=== PATIENT | male | born 1955 | race Caucasian/White ===

== ENCOUNTER 2017-01-22 21:44 | Emergency (ER) | payer OTHER ==
[~2017-01-22] VITALS: Ht 177.8 cm; Wt 79.4 kg
--- NOTE | 2017-01-22 23:12 | NUR ---
PT AMBULATORY TO ER BED 5 PT C/O LEFT HIP PAIN X 3 DAYS PT DENIES INJURY OR TRAUMA, PT AOX3 RR EVEN AND UNLABORED. NO SOB NOTED. NAD NOTED. NO NVD AT THIS TIME. PT GOWNED AND PLACED ON MONITOR. PT NOT DIAPHORETIC. WAITING FOR MD BERRIOS.
[2017-01-22] MEDS ORDERED: HYDROCODONE/APAP 5/325MG 1 EACH TABLET PO ONE (23:30)
--- NOTE | 2017-01-22 23:38 | NUR ---
XRAY AT BEDSIDE
[2017-01-22] MEDS ORDERED: HYDROCODONE/APAP 5/325MG 1 EACH TABLET ONE (23:52)
--- NOTE | 2017-01-23 00:13 | NUR ---
ZO HAMILTON (BROTHER) [phone]
--- NOTE | 2017-01-23 02:00 | NUR ---
DR. COOK AT BEDSIDE SPEAKING TO PT REGARDING RESULTS
--- NOTE | 2017-01-23 02:07 | NUR ---
Patient discharged to home in stable condition. Written and verbal after care instructions given. Patient verbalizes understanding of instruction. ambulatory with a steady gait. instructed not to drive. pt verbalize understanding. pt accompanied by brother
[2017-01-23 02:09] VITALS: BP 116/77
== END 2017-01-23 02:09 | disposition home or self-care (01) ==
LOC: ER 21:50
DX: M25.552 Pain in left hip (principal); M19.90 Unspecified osteoarthritis, unspecified site; I12.0 Hypertensive chronic kidney disease with stage 5 chronic kidney disease or end stage renal disease; E11.22 Type 2 diabetes mellitus with diabetic chronic kidney disease; N18.6 End stage renal disease; Z99.2 Dependence on renal dialysis; Z89.412 Acquired absence of left great toe
CPT/HCPCS: 73503; 73552; 73700; 99284; A4606; J7030; 73502; Z7610

== ENCOUNTER 2017-06-09 00:10 | Emergency (ER) | payer OTHER ==
[~2017-06-09] VITALS: Ht 175.3 cm; Wt 99.8 kg
--- NOTE | 2017-06-09 00:26 | NUR ---
PT AMBULATORY TO ER BED 4. PT BIB FAMILY C/O L HIP PAIN X 1 DAY. DENIES TRAUMA. VSS/RESP EVEN UNLABORED/NAD NOTED/SKIN WARM AND DRY/DENIES N-V-D/AFEBRILE/AOX4. AWAITING MD BERRIOS.
[2017-06-09] MEDS ORDERED: HYDROCODONE/APAP 5/325MG 1 EACH TABLET ONE (00:44)
[2017-06-09] MEDS ORDERED: HYDROCODONE/APAP 5/325MG 1 EACH TABLET PO ONE (01:00)
--- NOTE | 2017-06-09 01:14 | NUR ---
Patient discharged with family to home in stable condition. Written and verbal after care instructions given, patient instructed not to drive. Patient verbalizes understanding of instruction. Patient ambulatory with a cane.
[2017-06-09 01:15] VITALS: BP 124/71
== END 2017-06-09 01:16 | disposition home or self-care (01) ==
LOC: ER 00:12
DX: M25.552 Pain in left hip (principal); G89.29 Other chronic pain; E11.9 Type 2 diabetes mellitus without complications; I10 Essential (primary) hypertension; M19.90 Unspecified osteoarthritis, unspecified site; Z89.412 Acquired absence of left great toe; Z99.2 Dependence on renal dialysis
CPT/HCPCS: 99283; A4606; Z7610

== ENCOUNTER 2018-01-21 20:00 | Emergency (ER) | payer OTHER ==
[~2018-01-21] VITALS: Ht 175.3 cm; Wt 99.8 kg
[2018-01-21 20:42] VITALS: BP 101/79
[2018-01-22] MEDS ORDERED: HYDROCODONE/APAP 10/325MG 1 EA TABLET ONE (00:50)
[2018-01-22] MEDS ORDERED: HYDROCODONE/APAP 10/325MG 1 EA TABLET PO ONE (01:00)
== END 2018-01-22 01:17 | disposition home or self-care (01) ==
LOC: ER 20:06
DX: M54.42 Lumbago with sciatica, left side (principal); M25.552 Pain in left hip; G89.29 Other chronic pain; M25.551 Pain in right hip; E11.9 Type 2 diabetes mellitus without complications; I10 Essential (primary) hypertension; Z89.412 Acquired absence of left great toe; M19.90 Unspecified osteoarthritis, unspecified site
CPT/HCPCS: 99283; A4606; Z7610